=== PATIENT | female | born 1965 | race Caucasian/White ===

== ENCOUNTER 2019-01-06 12:02 | Outpatient (CLI) | payer MEDICAID, SELFPAY ==
[2019-01-06 13:02] LABS: *AMPHETAMINES SCREEN URINE Negative (Negative); *BARBITURATES SCREEN URINE Negative (Negative); *BENZODIAZEPINES SCREEN URINE Negative (Negative); Cannabinoids THC Negative (Negative); Cocaine Screen,Urine Negative (Negative); METHADONE URINE SCREEN Negative (Negative); OPIATES URINE SCREEN Negative (Negative)
[2019-01-06 13:07] LABS: Tricyclic Antidepressants Negative (Negative)
[2019-01-09 19:08] LABS: Alcohol Negative mg/dL (Cutoff: 10); Amphetamines Negative; Barbiturates Negative; Benzodiazepines Negative; Cocaine Negative; Opiates Negative; Phencyclidine Negative ng/mL (Cutoff: 25); Tetrahydrocannabinol Negative ng/mL (Cutoff: 50)
[2019-01-14 17:45] LABS: Buprenorphine 398.6 ng/mL; Norbuprenorphine 630.9 ng/mL
== END 2019-01-06 12:22 ==
PROVIDERS: PCP Physician Assistant; Visit Provider Internal Medicine
DX: F11.288 Opioid dependence with other opioid-induced disorder (principal)
CPT/HCPCS: 80307

== ENCOUNTER 2019-09-11 12:05 | Outpatient (RCR) | payer MEDICAID, SELFPAY ==
[2019-09-11 12:53] LABS: ALT 20 U/L (14-59); AST 21 U/L (15-37); Albumin 3.4 g/dL (3.4-5.0); Alkaline Phosphatase 82 U/L (46-116); Anion Gap 6.5 mmol/L (3-11); BUN 7 mg/dL (7-18); Bilirubin, Total 0.3 mg/dL (0.2-1.0); CO2 31.5 mmol/L (21.0-32.0); CREATININE 0.62 mg/dL (0.55-1.02); Calcium 8.7 mg/dL (8.5-10.1); Chloride 101 mmol/L (98-107); Glucose 165 mg/dL (74-106); Potassium 3.8 mmol/L (3.5-5.1); Sodium 139 mmol/L (136-145); Total Protein 7.5 g/dL (6.4-8.2)
[2019-09-11] MEDS: Normal Saline Flush 10 ML SYR IVP (13:21)
[2019-09-11] MEDS: Heparin 500 UNITS/5 ML SYRINGE IV (13:21)
== END 2019-09-16 23:59 | disposition home or self-care (01) ==
LOC: INF 12:05
PROVIDERS: PCP Nurse Practitioner; Visit Provider Internal Medicine Medical Oncology
DX: C50.411 Malignant neoplasm of upper-outer quadrant of right female breast (principal); Z17.0 Estrogen receptor positive status [ER+]; Z45.2 Encounter for adjustment and management of vascular access device
CPT/HCPCS: 36591; 80053

== ENCOUNTER 2019-10-16 01:05 | Outpatient (RCR) | payer MEDICAID, SELFPAY ==
[2019-10-16] MEDS: Heparin 500 UNITS/5 ML SYRINGE IV (11:54)
[2019-10-16] MEDS: Normal Saline Flush 10 ML SYR IVP (11:54)
[2019-10-16 12:14] LABS: ALT 22 U/L (14-59); AST 17 U/L (15-37); Albumin 3.5 g/dL (3.4-5.0); Alkaline Phosphatase 94 U/L (46-116); Anion Gap 4.8 mmol/L (3-11); BUN 12 mg/dL (7-18); Bilirubin, Total 0.2 mg/dL (0.2-1.0); CO2 31.2 mmol/L (21.0-32.0); CREATININE 0.68 mg/dL (0.55-1.02); Calcium 8.7 mg/dL (8.5-10.1); Chloride 99 mmol/L (98-107); Glucose 98 mg/dL (74-106); Sodium 135 mmol/L (136-145); Total Protein 7.7 g/dL (6.4-8.2)
== END 2019-10-16 23:59 | disposition home or self-care (01) ==
LOC: INF 01:05
PROVIDERS: PCP Nurse Practitioner; Visit Provider Internal Medicine Medical Oncology
DX: C50.411 Malignant neoplasm of upper-outer quadrant of right female breast (principal); Z17.0 Estrogen receptor positive status [ER+]; Z45.2 Encounter for adjustment and management of vascular access device
CPT/HCPCS: 36591; 80053

== ENCOUNTER 2019-11-13 03:04 | Outpatient (RCR) | payer MEDICAID, SELFPAY | END 2019-11-16 23:59 | disposition home or self-care (01) | LOC: INF 03:04 | PROVIDERS: PCP Nurse Practitioner; Visit Provider Internal Medicine Medical Oncology | DX: R69 Illness, unspecified (principal) ==

== ENCOUNTER 2019-11-13 12:55 | Outpatient (CLI) | payer MEDICAID, SELFPAY ==
[2019-11-13 13:20] LABS: ALT 28 U/L (14-59); AST 16 U/L (15-37); Albumin 3.6 g/dL (3.4-5.0); Alkaline Phosphatase 99 U/L (46-116); Anion Gap 2.9 mmol/L (3-11); BUN 9 mg/dL (7-18); Bilirubin, Total 0.5 mg/dL (0.2-1.0); CO2 31.1 mmol/L (21.0-32.0); CREATININE 0.67 mg/dL (0.55-1.02); Calcium 9.1 mg/dL (8.5-10.1); Chloride 103 mmol/L (98-107); Glucose 107 mg/dL (74-106); Potassium 3.1 mmol/L (3.5-5.1); Sodium 137 mmol/L (136-145); Total Protein 8.3 g/dL (6.4-8.2)
== END 2019-11-13 13:15 ==
PROVIDERS: PCP Nurse Practitioner; Visit Provider Internal Medicine Medical Oncology
DX: C50.411 Malignant neoplasm of upper-outer quadrant of right female breast (principal); Z17.0 Estrogen receptor positive status [ER+]
CPT/HCPCS: 36415; 80053